=== PATIENT | female | born 1985 | race African-American/Black ===

== ENCOUNTER 2021-06-12 15:00 | Outpatient (CLI) | payer OTHER | END 2021-06-12 15:01 | disposition home or self-care (01) | LOC: CSHRAD 15:00 | PROVIDERS: ATTEND Family Medicine | DX: T83.31XA Breakdown (mechanical) of intrauterine contraceptive device, initial encounter (principal) | CPT/HCPCS: 72170 ==

== ENCOUNTER 2021-12-28 09:35 | Emergency (ER) | payer MEDICAID, OTHER | END 2021-12-28 10:10 | disposition home or self-care (01) | LOC: CSHERS 09:35 | DX: J32.9 Chronic sinusitis, unspecified (principal) | CPT/HCPCS: 99283 ==

== ENCOUNTER 2025-04-05 12:37 | Emergency (ER) | payer OTHER ==
[~2025-04-05 12:37] MED LIST: Iopamidol 300 61% 100 ML VIAL FS ONE
[2025-04-05 15:46] LABS: Glucose, Urine (Dipstick) Normal (Negative); Leukocyte 100 (Negative); Protein, Urine (Dipstick) Negative (Neg-Trace); Specific Gravity, Urine 1.010 (1.005-1.030)
[2025-04-05 16:15] LABS: #Basophils 0.03 10x3/uL (0.0-0.2); #Eosinophils 0.08 10x3/uL (0.0-0.5); #Monocytes 0.45 10x3/uL (0.0-1.1); #Neutrophils 4.03 10x3/uL (1.5-8.4); %Basophils 0.4 % (0.0-2.0); %Eosinophils 1.2 % (0.0-6.0); %Lymphocytes 33.1 % (18.0-47.0); %Monocytes 6.5 % (0.0-10.0); %Neutrophils 58.7 % (40.0-75.0); Hematocrit 35.8 % (34.9-44.5); Hemoglobin 11.7 g/dL (12.0-15.5); Mean Corpuscular Hemoglobin 31.2 pg (27.0-33.0); Mean Corpuscular Volume 95.5 fL (81.6-98.3); Platelet Count 209 10x3/uL (150-450); Red Blood Cell (RBC) Count 3.75 10x6/uL (3.90-5.03); White Blood Cell (WBC) Count 6.88 10x3/uL (3.5-10.5)
[2025-04-05 16:32] LABS: BHCG - Serum Negative (NEGATIVE); Pregs Control Background? CLEAR/WHITE (CLR/WHITE); Pregs Control Bar Appear? YES (CONTROL BAR)
[2025-04-05 16:43] LABS: ALT (SGPT) Less than 7 U/L (Less than 34); AST (SGOT) 18 U/L (11-34); Albumin 4.0 g/dL (3.1-4.5); Alkaline Phosphatase 58 U/L (40-110); Anion Gap 9 mmol/L (10-20); BUN (Urea Nitrogen) 10 mg/dL (7.0-18.7); Bilirubin, Total 0.6 mg/dL (0.3-1.2); Calc. Creatinine Clearance 0 mL/min (70-130); Calcium 8.8 mg/dL (7.8-10.44); Carbon Dioxide 25 mmol/L (22-29); Chloride 107 mmol/L (98-107); Globulin 3.7 g/dL (2.4-3.5); Glucose 78 mg/dL (70-105); Lipase 20 U/L (8-78); Potassium 4.0 mmol/L (3.5-5.1); Sodium 137 mmol/L (136-145)
[2025-04-05] MEDS ORDERED: Ketorolac Tromethamine 30 MG (1 mL) VIAL ONE (16:45)
[2025-04-05 17:14] LABS: Bacteria/HPF 3+ HPF (None Seen); CAUTI Indications for Culture Pelvic or flank pain; RBC/HPF 0-3 HPF (0-3)
[2025-04-05 17:16] LABS: Urine Culture Reflex No No
[2025-04-05] MEDS ORDERED: Cephalexin 250 MG CAP ONE (18:23)
== END 2025-04-05 18:22 | disposition home or self-care (01) ==
LOC: CSHERS 12:37
DX: S00.06XA Insect bite (nonvenomous) of scalp, initial encounter (principal); K59.00 Constipation, unspecified; N39.0 Urinary tract infection, site not specified; W57.XXXA Bitten or stung by nonvenomous insect and other nonvenomous arthropods, initial encounter
CPT/HCPCS: 70450; 74177; 80053; 81001; 83690; 84703; 85025; 96374; J1885